=== PATIENT | female | born 1970 | race African-American/Black ===

== ENCOUNTER 2018-12-26 19:29 | Emergency (ER) | payer OTHER ==
[~2018-12-26] VITALS: Ht 160 cm; Wt 73.0 kg
[2018-12-26] MEDS ORDERED: KETOROLAC 30MG/ML VIAL IV STA (20:31)
[2018-12-26] MEDS ORDERED: SODIUM CHLORIDE 0.9% 1,000 ML IV ONE (20:31)
[2018-12-26] MEDS ORDERED: ONDANSETRON 4MG ODT PO STA (20:31)
[2018-12-26] MEDS ORDERED: FAMOTIDINE 20MG/2ML VIAL IV STA (20:31)
[2018-12-26 21:50] LABS: BASOPHILS % 0.3 % (0.0-2.0); EOSINOPHILS % 0.8 % (0.0-5.0); HEMATOCRIT. 37.8 % (36.0-48.0); HEMOGLOBIN. 12.7 g/dL (12.0-16.0); MEAN CORPUSCULAR HEMOGLOBIN 30.6 pg (28.0-32.0); MEAN PLATELET VOLUME 9.6 fl (7.4-10.4); NEUTROPHILS % 39.9 % (40.0-76.0); PLATELET 106 x1000/uL (130-400); RED BLOOD CELL COUNT 4.15 mill/uL (4.2-5.4); RED CELL DISTRIBUTION WIDTH 17.2 % (11.6-14.6)
[2018-12-26 21:55] LABS: CHLORIDE 100 mEq/L (98-107)
[2018-12-26 21:57] LABS: HCG SCREEN NEGATIVE
[2018-12-26 22:03] LABS: CLARITY URINE CLOUDY (CLEAR); COLOR URINE YELLOW (YELLOW); KETONES URINE NEGATIVE (NEGATIVE); LEUKOCYTE ESTERASE URINE 1+ (NEGATIVE); NITRITE URINE NEGATIVE (NEGATIVE); OCCULT BLOOD URINE NEGATIVE (NEGATIVE); PROTEIN URINE NEGATIVE (NEGATIVE); SPECIFIC GRAVITY URINE 1.003 (1.005-1.030); UROBILINOGEN URINE 0.2 E.U./dL (0.2-1.0)
[2018-12-26] MEDS ORDERED: POTASSIUM CHLORIDE 20MEQ TABLET SR PO ONE (22:30)
[2018-12-27 00:31] VITALS: BP 123/64
== END 2018-12-27 00:35 | disposition home or self-care (01) ==
LOC: ER 19:29
DX: R10.9 Unspecified abdominal pain (principal); K76.0 Fatty (change of) liver, not elsewhere classified; N39.0 Urinary tract infection, site not specified; R79.89 Other specified abnormal findings of blood chemistry; I10 Essential (primary) hypertension; K21.9 Gastro-esophageal reflux disease without esophagitis; Z88.3 Allergy status to other anti-infective agents
CPT/HCPCS: 36415; 76705; 80053; 81003; 81025; 82962; 83690; 84703; 85025; 93005; 96361; 96374; 99284; J1885; J3490; J7030; J7050; Q0162

== ENCOUNTER 2019-07-30 20:45 | Emergency (ER) | payer OTHER ==
[~2019-07-30] VITALS: Ht 157.5 cm; Wt 61.0 kg
[2019-07-30] MEDS ORDERED: KETOROLAC 60MG/2ML VIAL IM STA (23:10)
[2019-07-30] MEDS ORDERED: FAMOTIDINE 20MG TABLET PO ONE (23:15)
[2019-07-31 00:23] LABS: CLARITY URINE CLOUDY (CLEAR); COLOR URINE DARK YELLOW (YELLOW); KETONES URINE TRACE (NEGATIVE); LEUKOCYTE ESTERASE URINE TRACE (NEGATIVE); NITRITE URINE NEGATIVE (NEGATIVE); OCCULT BLOOD URINE NEGATIVE (NEGATIVE); PH URINE 6.5 (4.5-8.0); PROTEIN URINE TRACE (NEGATIVE); SPECIFIC GRAVITY URINE 1.022 (1.005-1.030)
[2019-07-31 00:23] LABS: BASOPHILS % 0.9 % (0.0-2.0); EOSINOPHILS % 1.3 % (0.0-5.0); HEMATOCRIT. 35.7 % (36.0-48.0); HEMOGLOBIN. 12.1 g/dL (12.0-16.0); LYMPHOCYTES % 29.9 % (20.0-50.0); MEAN CORPUSCULAR HEMOGLOBIN 29.4 pg (28.0-32.0); MEAN CORPUSCULAR VOLUME 87.1 fL (81.0-99.0); MEAN PLATELET VOLUME 7.7 fl (7.4-10.4); MONOCYTES % 8.7 % (2.0-8.0); NEUTROPHILS % 59.2 % (40.0-76.0); PLATELET 107 x1000/uL (130-400); RED CELL DISTRIBUTION WIDTH 19.9 % (11.6-14.6)
[2019-07-31 00:29] LABS: INR 1.4
[2019-07-31 00:45] LABS: CHLORIDE 104 mEq/L (98-107)
[2019-07-31 04:05] VITALS: BP 144/80
== END 2019-07-31 04:05 | disposition home or self-care (01) ==
LOC: ER 20:45
DX: K80.20 Calculus of gallbladder without cholecystitis without obstruction (principal); R10.9 Unspecified abdominal pain; R79.89 Other specified abnormal findings of blood chemistry; M79.10 Myalgia, unspecified site; M79.89 Other specified soft tissue disorders; E11.9 Type 2 diabetes mellitus without complications; Z88.1 Allergy status to other antibiotic agents
CPT/HCPCS: 36415; 76705; 80053; 81003; 81025; 83690; 85025; 85610; 93971; 96372; 99285; J1885

== ENCOUNTER 2020-01-22 19:18 | Inpatient (IN) | payer OTHER ==
[~2020-01-22] VITALS: Ht 160 cm; Wt 48.1 kg
[2020-01-23] MEDS ORDERED: SODIUM CHLORIDE 0.9% 1,000 ML IV ONE (00:01)
[2020-01-23] MEDS ORDERED: ONDANSETRON HCL 4MG/2ML INJ IV STA (00:01)
[2020-01-23] MEDS ORDERED: MORPHINE SULFATE 4 MG/ML CPJ (NOT FOR IM USE) IV STA (00:01)
[2020-01-23] MEDS ORDERED: FAMOTIDINE 20MG/2ML VIAL IV STA (00:01)
[2020-01-23 00:48] LABS: CLARITY URINE CLEAR (CLEAR); COLOR URINE DARK YELLOW (YELLOW); KETONES URINE 4+ (NEGATIVE); LEUKOCYTE ESTERASE URINE NEGATIVE (NEGATIVE); NITRITE URINE NEGATIVE (NEGATIVE); OCCULT BLOOD URINE NEGATIVE (NEGATIVE); PROTEIN URINE 1+ (NEGATIVE)
[2020-01-23 00:53] LABS: BASOPHILS % 0.6 % (0.0-2.0); EOSINOPHILS % 0.2 % (0.0-5.0); HEMATOCRIT. 29.5 % (36.0-48.0); HEMOGLOBIN. 9.6 g/dL (12.0-16.0); LYMPHOCYTES % 19.1 % (20.0-50.0); MEAN CORPUSCULAR HEMOGLOBIN 30.8 pg (28.0-32.0); MEAN CORPUSCULAR VOLUME 94.8 fL (81.0-99.0); MEAN PLATELET VOLUME 9.1 fl (7.4-10.4); MONOCYTES % 14.1 % (2.0-8.0); PLATELET 158 x1000/uL (130-400); RED BLOOD CELL COUNT 3.11 mill/uL (4.2-5.4); RED CELL DISTRIBUTION WIDTH 21.7 % (11.6-14.6)
[2020-01-23 01:00] LABS: CHLORIDE 99 mEq/L (98-107)
[2020-01-23 01:06] LABS: ETHANOL BLOOD 54 mg/dL
[2020-01-23 01:10] LABS: *AMPHETAMINES SCREEN URINE NEGATIVE (NEGATIVE); *BARBITURATES SCREEN URINE NEGATIVE (NEGATIVE); *COCAINE SCREEN URINE NEGATIVE (NEGATIVE); METHADONE URINE SCREEN NEGATIVE (NEGATIVE)
[2020-01-23 01:11] LABS: OPIATES URINE SCREEN NEGATIVE (NEGATIVE); PHENCYCLIDINE URINE SCREEN NEGATIVE (NEGATIVE)
[2020-01-23 01:12] LABS: *BENZODIAZEPINES SCREEN URINE PRESUMTIVE POSITIVE (NEGATIVE); CANNABINOID URINE SCREEN PRESUMTIVE POSITIVE (NEGATIVE)
[2020-01-23] MEDS ORDERED: DEXTROSE 50% WATER 50ML SYRINGE IV ONE ×2 (01:28→01:30)
[2020-01-23] MEDS ORDERED: DEXT 5%/0.45% NACL KCL 20MEQ/L 1,000 ML IV ONE (01:39)
[2020-01-23 02:08] LABS: HCG SCREEN NEGATIVE
[2020-01-23 02:21] LABS: INR 1.7; PROTHROMBIN TIME 17.2 sec (9.6-11.0)
[2020-01-23 06:44] VITALS: BP 106/74
[2020-01-23] MEDS ORDERED: ONDANSETRON HCL 4MG/2ML INJ IV PRN (07:45)
[2020-01-23 08:00] VITALS: BP 112/67
[2020-01-23 08:18] VITALS: BP 112/67
[2020-01-23] MEDS ORDERED: zofran (08:34)
[2020-01-23] MEDS ORDERED: POTASSIUM CHLORIDE 20MEQ TABLET SR PO SCH (09:00)
[2020-01-23] MEDS: FUROSEMIDE 40MG TABLET PO SCH (09:24)
[2020-01-23] MEDS: PANTOPRAZOLE SODIUM 40 MG/VIAL IV SCH (09:24)
[2020-01-23] MEDS: DEXT 5%/0.45% NACL 1000ML 1,000 ML IV SCH (11:22)
[2020-01-23] MEDS: CEFTRIAXONE 1,000 MG in DEXTROSE 5% WATER 50 ML IV SCH (11:22)
[2020-01-23] MEDS: METRONIDAZOLE 500 MG PREMIX 100 ML IV SCH ×3 (11:23→21:53)
[2020-01-23 12:00] VITALS: BP 119/76
[2020-01-23] MEDS ORDERED: MORPHINE SULFATE 2 MG/ML CPJ (NOT FOR IM USE) IV NR (13:30)
[2020-01-23] MEDS ORDERED: SODIUM BICARBONATE 4% (2.4MEQ) 5ML VIAL IV ONE (13:55)
[2020-01-23] MEDS ORDERED: LIDOCAINE HCL 1% 20ML VIAL (Pyxis) INJ ONE (13:55)
[2020-01-23 16:00] VITALS: BP 106/71
[2020-01-23 20:00] VITALS: BP 126/79
[2020-01-24] VITALS: BP 106/67
[2020-01-24 04:00] VITALS: BP 120/83
[2020-01-24] MEDS: KETOROLAC 30MG/ML VIAL IV PRN ×2 (04:40→13:48)
[2020-01-24] MEDS: METRONIDAZOLE 500 MG PREMIX 100 ML IV SCH (05:39)
[2020-01-24 07:48] VITALS: BP 122/85
[2020-01-24 07:49] VITALS: BP 122/85
[2020-01-24] MEDS: CEFTRIAXONE 1,000 MG in DEXTROSE 5% WATER 50 ML IV SCH (09:11)
[2020-01-24] MEDS: FUROSEMIDE 40MG TABLET PO SCH (09:12)
[2020-01-24] MEDS: DEXT 5%/0.45% NACL 1000ML 1,000 ML IV SCH (09:12)
[2020-01-24] MEDS: PANTOPRAZOLE SODIUM 40 MG/VIAL IV SCH (09:12)
[2020-01-24] MEDS ORDERED: THIA100T72 MT (10:29)
[2020-01-24] MEDS ORDERED: FURO40TA5 PO (10:29)
[2020-01-24] MEDS ORDERED: LEVO500T2 MT (10:29)
[2020-01-24] MEDS ORDERED: METR500T MT (10:29)
[2020-01-24 11:03] VITALS: BP 122/82
[2020-01-24 12:00] VITALS: BP 129/79
[2020-01-25] MEDS ORDERED: METRONIDAZOLE 500MG TABLET PO SCH (06:00)
[2020-01-25] MEDS ORDERED: FAMOTIDINE 20MG TABLET PO SCH (09:00)
== END 2020-01-24 14:55 | disposition home or self-care (01) ==
LOC: ER 19:18 → 8WST 01-23 03:04 → EDBEDREQTM 01-23 03:07 → EDBEDREQ 01-23 03:07 → ENRESERV 01-23 05:15
PROVIDERS: ADMIT Internal Medicine; ATTEND Internal Medicine
PROC: 0W9G3ZZ Drainage of Peritoneal Cavity, Percutaneous Approach (ICD-10-PCS; principal; 2020-01-23)
DX: K74.60 Unspecified cirrhosis of liver (principal); K52.9 Noninfective gastroenteritis and colitis, unspecified; I10 Essential (primary) hypertension; Y90.9 Presence of alcohol in blood, level not specified; R18.8 Other ascites; E87.2 Acidosis; E16.2 Hypoglycemia, unspecified; F10.129 Alcohol abuse with intoxication, unspecified; E87.6 Hypokalemia; E43 Unspecified severe protein-calorie malnutrition; F12.90 Cannabis use, unspecified, uncomplicated; Z68.1 Body mass index [BMI] 19.9 or less, adult; Z71.41 Alcohol abuse counseling and surveillance of alcoholic
CPT/HCPCS: 36415; 49083; 74176; 80053; 80305; 80320; 81003; 82962; 83605; 84703; 85025; 93005; 99285; C9113; J0696; J1885; J2270; J2405; J3490; J7030; J7060; G0480